=== PATIENT | female | born 1940 | race African-American/Black ===

== ENCOUNTER 2016-10-03 17:33 | Inpatient (IN) | payer OTHER, MEDICAID ==
[~2016-10-03] VITALS: Ht 149.9 cm; Wt 83.9 kg
[2016-10-03] MEDS: BIMATOPROST 0.01%, 2.5 ML EYE DROPS OP SCH (09:00)
[2016-10-03 17:33] VITALS: BP 113/88; PULSE 126; RESP 22; TEMP 99.6; O2SAT 97
[2016-10-03] MEDS ORDERED: NACL 0.9% 1,000 ML IV ONE ×2 (17:45→19:30)
[2016-10-03] MEDS ORDERED: IBUPROFEN 600 MG TABLET PO ONE (17:45)
[2016-10-03] MEDS ORDERED: OXYC5TAB84 PO (17:47)
[2016-10-03] MEDS ORDERED: HYDR-4100 PO (17:47)
[2016-10-03] MEDS ORDERED: BIMA2.5D5 OP (17:47)
[2016-10-03] MEDS ORDERED: DEC1 PO (17:47)
[2016-10-03] MEDS ORDERED: OXYC20TA72 PO (17:47)
[2016-10-03] MEDS ORDERED: OMEG-128 PO (17:47)
[2016-10-03] MEDS ORDERED: OMEP40CA33 PO (17:47)
[2016-10-03] MEDS ORDERED: FURO-150 PO (17:47)
[2016-10-03] MEDS ORDERED: OXYC20TA55 PO (17:47)
[2016-10-03] MEDS ORDERED: SOLI5TAB6 PO (17:47)
[2016-10-03] MEDS ORDERED: GABA-531 PO (17:47)
[2016-10-03 18:40] LABS: ANION GAP 8 (5-15); CALCIUM 8.4 mg/dL (8.4-11.0); CHLORIDE 99 mmol/L (98-107); CREATININE 1.29 mg/dL (0.55-1.30); GLUCOSE 175 mg/dL (70-99); POTASSIUM 3.2 mmol/L (3.5-5.1); SODIUM SERUM 134 mmol/L (136-145); UREA NITROGEN, BLOOD 16 mg/dL (8-21)
[2016-10-03 18:44] LABS: ALANINE AMINOTRANSFERASE 17 U/L (12-78); ALBUMIN 2.5 g/dL (3.4-4.8); ASPARTATE AMINOTRANSFERASE 33 U/L (10-37); TOTAL BILIRUBIN 1.2 mg/dL (0.0-1.0); TOTAL PROTEIN, SERUM 7.4 g/dL (6.4-8.3)
[2016-10-03 18:46] LABS: HEMOGLOBIN 11.3 g/dL (12.0-16.0); MEAN CORPUSCULAR HEMOGLOBIN 25 pg (27-31); MEAN CORPUSCULAR HGB CONC 32 % (32-36); WHITE BLOOD COUNT (AUTO) 17.5 K/uL (4.8-10.8)
[2016-10-03 18:49] LABS: BASOPHILS # (AUTO) 0.1 K/uL (0.0-0.2); BASOPHILS % (AUTO) 0.4 % (0.0-2.0); HEMATOCRIT 35.9 % (36-48); LYMPHOCYTES # (AUTO) 0.3 K/uL (1.0-5.5); MEAN CORPUSCULAR VOLUME 80 fL (79.0-98.0); MONOCYTES # (AUTO) 1.1 K/uL (0.0-1.0); MONOCYTES % (AUTO) 6.3 % (1.7-9.3); NEUTROPHILS % (AUTO) 91.3 % (40.0-70.0); PLATELET COUNT (AUTO) 270 K/uL (130-430); RED BLOOD CELL COUNT(AUTO) 4.49 MIL/uL (4.2-6.2); RED CELL DISTRIBUTION WIDTH 19.2 % (9.0-15.0)
[2016-10-03 19:00] LABS: INR 1.4 (0.8-1.2); PROTHROMBIN TIME 15.2 SECS (9.5-12.5)
[2016-10-03] MEDS ORDERED: NACL 0.9% 1,000 ML IV SCH (19:17)
[2016-10-03] MEDS ORDERED: VANCOMYCIN HCL 1,000 MG in NS 250 ML IV ONE (19:30)
[2016-10-03] MEDS ORDERED: NOREPINEPHRINE BITARTRATE 4 MG in NS 250 ML IV ONE (19:30)
[2016-10-03] MEDS ORDERED: NOREPINEPHRINE 4 MG/4 ML VIAL IV ONE (19:37)
[2016-10-03 19:45] VITALS: BP 91/51; PULSE 104; RESP 19; TEMP 97.3; O2SAT 94
[2016-10-03] MEDS ORDERED: VANCOMYCIN HCL 1000 MG/VIAL IV ONE (19:57)
[2016-10-03 20:00] VITALS: BP 91/51; PULSE 105; RESP 19; TEMP 97.3; O2SAT 94
[2016-10-03] MEDS ORDERED: MORPHINE 2 MG/ML INJ. SYRINGE IVP PRN (20:15)
[2016-10-03] MEDS ORDERED: LORazepam 2 MG/ML VIAL IVP PRN (20:15)
[2016-10-03] MEDS ORDERED: MAGNESIUM SULFATE 50 ML IV PRN (20:15)
[2016-10-03] MEDS ORDERED: ACETAMINOPHEN 325 MG TABLET PO PRN (20:15)
[2016-10-03] MEDS ORDERED: ONDANSETRON HCL 4 MG/2 ML VIAL IVP PRN (20:15)
[2016-10-03] MEDS ORDERED: DOCUSATE SODIUM 100 MG CAPSULE PO PRN (20:15)
[2016-10-03] MEDS ORDERED: ZOLPIDEM TARTRATE 5 MG TABLET PO PRN (20:15)
[2016-10-03 21:00] VITALS: BP 83/46; PULSE 102; RESP 20; O2SAT 95
[2016-10-03] MEDS: oxyCODONE HCL 10 MG TAB.ER.12H PO SCH (21:00)
[2016-10-03] MEDS: HEPARIN SODIUM,PORCINE 5000 UNITS/ML VIAL SUBCUT SCH (21:52)
[2016-10-03] MEDS: POTASSIUM CHLORIDE 10 MEQ TAB.PRT.SR PO PRN (21:53)
[2016-10-03 22:00] VITALS: BP 95/63; PULSE 99; RESP 21; O2SAT 94
[2016-10-03 22:28] LABS: BILIRUBIN,URINE 1+ (NEGATIVE); BLOOD, URINE 3+ (NEGATIVE); CLARITY/URINE CLOUDY (CLEAR); COLOR,URINE YELLOW (YELLOW); GLUCOSE,URINE NEGATIVE (NEGATIVE); KETONES,URINE TRACE (NEGATIVE); LEUKOCYTE ESTERASE ,URINE 2+ (NEGATIVE); NITRITE, URINE NEGATIVE (NEGATIVE); PROTEIN URINE 2+ (NEGATIVE)
[2016-10-03 22:55] LABS: BACTERIA,URINE MANY /HPF (None Seen); MUCUS,URINE None Seen /LPF (None Seen); RBC,URINE 0-3 /HPF (0-3); WBC,URINE >100 /HPF (0-3)
[2016-10-03 23:00] VITALS: BP 106/63; PULSE 105; RESP 17; O2SAT 95
[2016-10-03] MEDS: NACL 0.9% 1,000 ML IV SCH (23:29)
[2016-10-04] VITALS (23 sets, daily range): BP systolic 94–139; BP diastolic 56–86; PULSE 78–102; RESP 11–24; TEMP 97.3–98; O2SAT 92–99; Ht 149.9 cm; Wt 83.9 kg
[2016-10-04] MEDS: NACL 0.9% 1,000 ML IV SCH ×3 (06:39→18:36)
[2016-10-04 07:05] LABS: ANION GAP 9 (5-15); CALCIUM 7.5 mg/dL (8.4-11.0); CHLORIDE 109 mmol/L (98-107); GLUCOSE 127 mg/dL (70-99); POTASSIUM 3.5 mmol/L (3.5-5.1); SODIUM SERUM 141 mmol/L (136-145); UREA NITROGEN, BLOOD 15 mg/dL (8-21)
[2016-10-04 07:14] LABS: BASOPHILS % (AUTO) 0.2 % (0.0-2.0); EOSINOPHILS # (AUTO) 0.1 K/uL (0.0-0.4); EOSINOPHILS % (AUTO) 0.4 % (0.0-4.0); HEMATOCRIT 32.6 % (36-48); HEMOGLOBIN 10.3 g/dL (12.0-16.0); LYMPHOCYTES # (AUTO) 0.6 K/uL (1.0-5.5); LYMPHOCYTES % (AUTO) 3.8 % (20.5-51.5); MEAN CORPUSCULAR HEMOGLOBIN 25 pg (27-31); MEAN CORPUSCULAR HGB CONC 31 % (32-36); MEAN CORPUSCULAR VOLUME 81 fL (79.0-98.0); MONOCYTES # (AUTO) 0.7 K/uL (0.0-1.0); MONOCYTES % (AUTO) 4.8 % (1.7-9.3); NEUTROPHILS # (AUTO) 13.4 K/uL (1.8-7.7); NEUTROPHILS % (AUTO) 90.8 % (40.0-70.0); PLATELET COUNT (AUTO) 293 K/uL (130-430); RED BLOOD CELL COUNT(AUTO) 4.04 MIL/uL (4.2-6.2); RED CELL DISTRIBUTION WIDTH 19.7 % (9.0-15.0); WHITE BLOOD COUNT (AUTO) 14.8 K/uL (4.8-10.8)
[2016-10-04] MEDS: GABAPENTIN 300 MG CAPSULE PO SCH (08:41)
[2016-10-04] MEDS: OXYBUTYNIN CHLORIDE 5 MG TABLET PO SCH (08:42)
[2016-10-04] MEDS: HEPARIN SODIUM,PORCINE 5000 UNITS/ML VIAL SUBCUT SCH ×2 (08:43→21:31)
[2016-10-04] MEDS ORDERED: DEXAMETHASONE 1 MG TABLET (DECADRON) PO SCH (09:00)
[2016-10-04] MEDS: oxyCODONE HCL 10 MG TAB.ER.12H PO SCH ×2 (09:00→21:00)
[2016-10-04] MEDS: BIMATOPROST 0.01%, 2.5 ML EYE DROPS OP SCH (21:00)
[2016-10-04] MEDS ORDERED: VANCOMYCIN HCL 1,000 MG in NS 250 ML IV SCH (21:00)
[2016-10-04] MEDS: VANCOMYCIN HCL 1 GM/NS PREMIX 250 ML IV SCH (21:29)
[2016-10-04] MEDS: DEXAMETHASONE SOD PHOSPHATE 4 MG/ML VIAL IVP SCH (21:30)
[2016-10-05] VITALS: BP 112/56; PULSE 84; RESP 16; TEMP 97.6; O2SAT 94
[2016-10-05] MEDS: NACL 0.9% 1,000 ML IV SCH (02:31)
[2016-10-05 04:55] VITALS: BP 143/75; PULSE 83; RESP 18; TEMP 96.7; O2SAT 98
[2016-10-05 06:46] LABS: BASOPHILS % (AUTO) 0.1 % (0.0-2.0); EOSINOPHILS % (AUTO) 0.1 % (0.0-4.0); HEMATOCRIT 31.8 % (36-48); HEMOGLOBIN 9.6 g/dL (12.0-16.0); LYMPHOCYTES # (AUTO) 0.5 K/uL (1.0-5.5); LYMPHOCYTES % (AUTO) 5.1 % (20.5-51.5); MEAN CORPUSCULAR HEMOGLOBIN 24 pg (27-31); MEAN CORPUSCULAR HGB CONC 30 % (32-36); MEAN CORPUSCULAR VOLUME 80 fL (79.0-98.0); MONOCYTES # (AUTO) 0.3 K/uL (0.0-1.0); MONOCYTES % (AUTO) 2.8 % (1.7-9.3); NEUTROPHILS # (AUTO) 9.5 K/uL (1.8-7.7); NEUTROPHILS % (AUTO) 91.9 % (40.0-70.0); PLATELET COUNT (AUTO) 245 K/uL (130-430); RED BLOOD CELL COUNT(AUTO) 3.98 MIL/uL (4.2-6.2); RED CELL DISTRIBUTION WIDTH 19.1 % (9.0-15.0); WHITE BLOOD COUNT (AUTO) 10.3 K/uL (4.8-10.8)
[2016-10-05 07:22] LABS: ANION GAP 6 (5-15); CHLORIDE 111 mmol/L (98-107); CREATININE 0.83 mg/dL (0.55-1.30); GLUCOSE 140 mg/dL (70-99); POTASSIUM 3.4 mmol/L (3.5-5.1); SODIUM SERUM 142 mmol/L (136-145); UREA NITROGEN, BLOOD 12 mg/dL (8-21)
[2016-10-05 07:58] LABS: CALCIUM 6.9 mg/dL (8.4-11.0)
[2016-10-05 08:00] VITALS: BP 130/92; PULSE 84; RESP 17; TEMP 96.8; O2SAT 98
[2016-10-05] MEDS: OXYBUTYNIN CHLORIDE 5 MG TABLET PO SCH (08:33)
[2016-10-05] MEDS: DEXAMETHASONE SOD PHOSPHATE 4 MG/ML VIAL IVP SCH ×2 (08:33→20:55)
[2016-10-05] MEDS: GABAPENTIN 300 MG CAPSULE PO SCH (08:33)
[2016-10-05] MEDS: oxyCODONE HCL 10 MG TAB.ER.12H PO SCH ×2 (08:34→20:54)
[2016-10-05] MEDS: HEPARIN SODIUM,PORCINE 5000 UNITS/ML VIAL SUBCUT SCH ×2 (08:38→20:56)
[2016-10-05] MEDS: POTASSIUM CHLORIDE 10 MEQ TAB.PRT.SR PO PRN (09:04)
[2016-10-05 12:00] VITALS: BP 114/74; PULSE 80; RESP 18; TEMP 97.4; O2SAT 95
[2016-10-05] MEDS ORDERED: CALCIUM CARBONATE 500 MG/ TAB.CHEW PO ONE (12:30)
[2016-10-05] MEDS ORDERED: CEFEPIME 1 GM in D5W 50 ML IV ONE (13:30)
[2016-10-05] MEDS: 0.45% NACL 1,000 ML IV SCH (13:45)
[2016-10-05 16:00] VITALS: BP 104/75; PULSE 87; RESP 18; TEMP 96.9; O2SAT 95
[2016-10-05 20:00] VITALS: BP 110/80; PULSE 85; RESP 18; TEMP 97.2; O2SAT 95
[2016-10-05] MEDS: CALCIUM CARBONATE 500 MG/ TAB.CHEW PO SCH (20:54)
[2016-10-05] MEDS: VANCOMYCIN HCL 1 GM/NS PREMIX 250 ML IV SCH (20:54)
[2016-10-05] MEDS: CEFEPIME 1 GM in D5W 50 ML IV SCH (20:54)
[2016-10-05] MEDS: BIMATOPROST 0.01%, 2.5 ML EYE DROPS OP SCH (20:58)
[2016-10-06 00:16] VITALS: BP 134/85; PULSE 77; RESP 16; TEMP 97.9; O2SAT 100
[2016-10-06 04:13] VITALS: BP 122/84; PULSE 74; RESP 18; TEMP 97.9; O2SAT 99
[2016-10-06 08:08] LABS: BASOPHILS % (AUTO) 0.1 % (0.0-2.0); HEMOGLOBIN 9.9 g/dL (12.0-16.0); LYMPHOCYTES # (AUTO) 0.7 K/uL (1.0-5.5); MEAN CORPUSCULAR HEMOGLOBIN 24 pg (27-31); MEAN CORPUSCULAR HGB CONC 31 % (32-36); MEAN CORPUSCULAR VOLUME 79 fL (79.0-98.0); MONOCYTES # (AUTO) 0.3 K/uL (0.0-1.0); MONOCYTES % (AUTO) 3.9 % (1.7-9.3); NEUTROPHILS # (AUTO) 7.2 K/uL (1.8-7.7); PLATELET COUNT (AUTO) 235 K/uL (130-430); RED BLOOD CELL COUNT(AUTO) 4.04 MIL/uL (4.2-6.2); WHITE BLOOD COUNT (AUTO) 8.2 K/uL (4.8-10.8)
[2016-10-06 08:15] VITALS: BP 143/82; PULSE 84; RESP 18; TEMP 97; O2SAT 98
[2016-10-06 08:25] LABS: ANION GAP 7 (5-15); CALCIUM 7.3 mg/dL (8.4-11.0); CHLORIDE 107 mmol/L (98-107); CREATININE 0.86 mg/dL (0.55-1.30); GLUCOSE 132 mg/dL (70-99); SODIUM SERUM 138 mmol/L (136-145); UREA NITROGEN, BLOOD 13 mg/dL (8-21)
[2016-10-06] MEDS: oxyCODONE HCL 10 MG TAB.ER.12H PO SCH ×2 (09:00→20:17)
[2016-10-06] MEDS: OXYBUTYNIN CHLORIDE 5 MG TABLET PO SCH (09:09)
[2016-10-06] MEDS: CALCIUM CARBONATE 500 MG/ TAB.CHEW PO SCH ×2 (09:09→20:17)
[2016-10-06] MEDS: GABAPENTIN 300 MG CAPSULE PO SCH (09:09)
[2016-10-06] MEDS: CEFEPIME 1 GM in D5W 50 ML IV SCH ×2 (09:10→20:16)
[2016-10-06] MEDS: DEXAMETHASONE SOD PHOSPHATE 4 MG/ML VIAL IVP SCH ×2 (09:10→20:17)
[2016-10-06] MEDS: HEPARIN SODIUM,PORCINE 5000 UNITS/ML VIAL SUBCUT SCH ×2 (09:11→20:20)
[2016-10-06] MEDS: 0.45% NACL 1,000 ML IV SCH (10:50)
[2016-10-06 12:26] VITALS: BP 139/83; PULSE 72; RESP 17; TEMP 98.1; O2SAT 97
[2016-10-06 16:17] VITALS: BP 147/92; PULSE 82; RESP 18; TEMP 98; O2SAT 97
[2016-10-06 20:00] VITALS: BP 142/90; PULSE 85; RESP 19; TEMP 97.9; O2SAT 97
[2016-10-06] MEDS: BIMATOPROST 0.01%, 2.5 ML EYE DROPS OP SCH (20:20)
[2016-10-06] MEDS: VANCOMYCIN HCL 1 GM/NS PREMIX 250 ML IV SCH (21:27)
[2016-10-07] VITALS: BP 128/63; PULSE 80; RESP 20; TEMP 98.4; O2SAT 96
[2016-10-07] MEDS: 0.45% NACL 1,000 ML IV SCH (03:32)
[2016-10-07 04:00] VITALS: BP 129/66; PULSE 78; RESP 18; TEMP 98.1; O2SAT 95
[2016-10-07 06:47] LABS: BASOPHILS % (AUTO) 0.1 % (0.0-2.0); HEMATOCRIT 31.6 % (36-48); HEMOGLOBIN 9.7 g/dL (12.0-16.0); LYMPHOCYTES # (AUTO) 0.6 K/uL (1.0-5.5); LYMPHOCYTES % (AUTO) 7.7 % (20.5-51.5); MEAN CORPUSCULAR HEMOGLOBIN 24 pg (27-31); MEAN CORPUSCULAR HGB CONC 31 % (32-36); MEAN CORPUSCULAR VOLUME 79 fL (79.0-98.0); MONOCYTES # (AUTO) 0.5 K/uL (0.0-1.0); MONOCYTES % (AUTO) 6.3 % (1.7-9.3); NEUTROPHILS # (AUTO) 6.2 K/uL (1.8-7.7); NEUTROPHILS % (AUTO) 85.9 % (40.0-70.0); PLATELET COUNT (AUTO) 260 K/uL (130-430); RED BLOOD CELL COUNT(AUTO) 3.98 MIL/uL (4.2-6.2); RED CELL DISTRIBUTION WIDTH 19.4 % (9.0-15.0); WHITE BLOOD COUNT (AUTO) 7.3 K/uL (4.8-10.8)
[2016-10-07 06:52] LABS: ANION GAP 7 (5-15); CALCIUM 7.7 mg/dL (8.4-11.0); CHLORIDE 108 mmol/L (98-107); CREATININE 1.14 mg/dL (0.55-1.30); GLUCOSE 137 mg/dL (70-99); POTASSIUM 3.4 mmol/L (3.5-5.1); SODIUM SERUM 140 mmol/L (136-145); UREA NITROGEN, BLOOD 13 mg/dL (8-21)
[2016-10-07 07:00] VITALS: BP 131/69; PULSE 79; RESP 18; TEMP 97.9; O2SAT 96
[2016-10-07] MEDS: DEXAMETHASONE SOD PHOSPHATE 4 MG/ML VIAL IVP SCH ×2 (09:15→20:47)
[2016-10-07] MEDS: CALCIUM CARBONATE 500 MG/ TAB.CHEW PO SCH ×2 (09:15→20:47)
[2016-10-07] MEDS: OXYBUTYNIN CHLORIDE 5 MG TABLET PO SCH (09:15)
[2016-10-07] MEDS: GABAPENTIN 300 MG CAPSULE PO SCH (09:15)
[2016-10-07] MEDS: oxyCODONE HCL 10 MG TAB.ER.12H PO SCH ×2 (09:23→20:48)
[2016-10-07] MEDS: CEFEPIME 1 GM in D5W 50 ML IV SCH ×2 (09:23→20:50)
[2016-10-07] MEDS: HEPARIN SODIUM,PORCINE 5000 UNITS/ML VIAL SUBCUT SCH ×2 (09:26→20:52)
[2016-10-07 12:02] VITALS: BP 155/92; PULSE 75; RESP 16; TEMP 97.6; O2SAT 100
[2016-10-07 16:09] VITALS: BP 144/76; PULSE 77; RESP 16; TEMP 98; O2SAT 99
[2016-10-07 20:00] VITALS: BP 134/72; PULSE 74; RESP 17; TEMP 97.8; O2SAT 98
[2016-10-07] MEDS: BIMATOPROST 0.01%, 2.5 ML EYE DROPS OP SCH (20:50)
[2016-10-07] MEDS: VANCOMYCIN HCL 1 GM/NS PREMIX 250 ML IV SCH (21:50)
[2016-10-08 00:01] VITALS: BP 140/79; PULSE 77; RESP 17; TEMP 97.1; O2SAT 98
[2016-10-08 04:30] VITALS: BP 143/83; PULSE 79; RESP 17; TEMP 97.3; O2SAT 98
[2016-10-08 06:36] LABS: BASOPHILS % (AUTO) 0.1 % (0.0-2.0); EOSINOPHILS % (AUTO) 0.3 % (0.0-4.0); HEMATOCRIT 32.3 % (36-48); HEMOGLOBIN 10.2 g/dL (12.0-16.0); LYMPHOCYTES # (AUTO) 0.7 K/uL (1.0-5.5); LYMPHOCYTES % (AUTO) 7.9 % (20.5-51.5); MEAN CORPUSCULAR HEMOGLOBIN 25 pg (27-31); MEAN CORPUSCULAR HGB CONC 32 % (32-36); MEAN CORPUSCULAR VOLUME 79 fL (79.0-98.0); MONOCYTES # (AUTO) 0.5 K/uL (0.0-1.0); MONOCYTES % (AUTO) 5.2 % (1.7-9.3); NEUTROPHILS # (AUTO) 7.8 K/uL (1.8-7.7); NEUTROPHILS % (AUTO) 86.5 % (40.0-70.0); PLATELET COUNT (AUTO) 275 K/uL (130-430); RED CELL DISTRIBUTION WIDTH 19.4 % (9.0-15.0)
[2016-10-08 06:44] LABS: ANION GAP 6 (5-15); CALCIUM 8.3 mg/dL (8.4-11.0); CHLORIDE 106 mmol/L (98-107); CREATININE 0.93 mg/dL (0.55-1.30); GLUCOSE 125 mg/dL (70-99); POTASSIUM 3.7 mmol/L (3.5-5.1); SODIUM SERUM 140 mmol/L (136-145); UREA NITROGEN, BLOOD 18 mg/dL (8-21)
[2016-10-08 07:54] VITALS: BP 162/83; PULSE 69; RESP 17; TEMP 97.8; O2SAT 99
[2016-10-08] MEDS: DEXAMETHASONE SOD PHOSPHATE 4 MG/ML VIAL IVP SCH (08:59)
[2016-10-08] MEDS: GABAPENTIN 300 MG CAPSULE PO SCH (08:59)
[2016-10-08] MEDS: CALCIUM CARBONATE 500 MG/ TAB.CHEW PO SCH (08:59)
[2016-10-08] MEDS: OXYBUTYNIN CHLORIDE 5 MG TABLET PO SCH (08:59)
[2016-10-08] MEDS: oxyCODONE HCL 10 MG TAB.ER.12H PO SCH (09:00)
[2016-10-08] MEDS: HEPARIN SODIUM,PORCINE 5000 UNITS/ML VIAL SUBCUT SCH (09:02)
[2016-10-08] MEDS ORDERED: LEVO500T20 PO (09:30)
[2016-10-08] MEDS ORDERED: LEVOFLOXACIN 500 MG/D5W 100 ML IV SCH (09:30)
[2016-10-08 12:00] VITALS: BP 155/88; PULSE 74; RESP 18; TEMP 98; O2SAT 99
[2016-10-08] MEDS ORDERED: VANCOMYCIN HCL 1 GM/NS PREMIX 250 ML IV ONE (12:00)
[2016-10-08 13:30] VITALS: BP 155/88; PULSE 84; RESP 18; TEMP 98; O2SAT 98
[2016-10-08] MEDS ORDERED: LACTOBACILLUS RHAMNOSUS GG 1 CAP CAPSULE PO SCH (21:00)
== END 2016-10-08 14:45 | disposition home health service (06) | DRG 871 ==
LOC: SED 17:33 → EDBD 19:16 → SIC 19:16 → SMU 10-04 20:35 → STU 10-04 20:50
PROVIDERS: ADMIT General Practice; ATTEND General Practice
PROC: 02HV33Z Insertion of Infusion Device into Superior Vena Cava, Percutaneous Approach (ICD-10-PCS; principal; 2016-10-04)
PROC: B548ZZA Ultrasonography of Superior Vena Cava, Guidance (ICD-10-PCS; 2016-10-04)
DX: A41.9 Sepsis, unspecified organism (principal); R65.21 Severe sepsis with septic shock; N17.0 Acute kidney failure with tubular necrosis; N39.0 Urinary tract infection, site not specified; E87.2 Acidosis; E44.0 Moderate protein-calorie malnutrition; D68.9 Coagulation defect, unspecified; C78.7 Secondary malignant neoplasm of liver and intrahepatic bile duct; E66.9 Obesity, unspecified; C80.1 Malignant (primary) neoplasm, unspecified; E87.6 Hypokalemia; B95.8 Unspecified staphylococcus as the cause of diseases classified elsewhere; B96.20 Unspecified Escherichia coli [E. coli] as the cause of diseases classified elsewhere; B96.4 Proteus (mirabilis) (morganii) as the cause of diseases classified elsewhere; B96.89 Other specified bacterial agents as the cause of diseases classified elsewhere; G89.4 Chronic pain syndrome; I10 Essential (primary) hypertension; Z82.49 Family history of ischemic heart disease and other diseases of the circulatory system; Z87.891 Personal history of nicotine dependence; Z79.899 Other long term (current) drug therapy; Z68.37 Body mass index [BMI] 37.0-37.9, adult; Z88.8 Allergy status to other drugs, medicaments and biological substances
CPT/HCPCS: 36415; 71010; 80048; 80053; 80202-TC; 81000-TC; 82962; 83605; 83735-TC; 83880; 84484; 85025; 85610-TC; 85730-TC; 87040-TC; 87081; 87086; 87186-TC; 87230-TC; 93005; 97110-GP; 97116-GP; 97530-GP; 99285; C1751; J0692; J1100; J1644; J1956; J3370; J3475; J7030; J7050; J7060